=== PATIENT | female | born 1985 | race Hispanic/Latino ===

== ENCOUNTER 2016-11-20 07:41 | Emergency (ER) | payer MEDICAID ==
[2016-11-20 08:25] VITALS: BMI 20.3
[2016-11-20 08:28] VITALS: TEMP 99; O2SAT 100
--- NOTE | 2016-11-20 08:42 | ED PDOC ---
Arrival/HPI - General Chief Complaint: Female Genitourinary Time Seen by Provider: 11/20/16 08:35 Historian: Patient - History of Present Illness Narrative History of Present Illness (Text): 11/20/16 08:35 A 31 year old female presents to the emergency department complaining of urinary frequency, urinary urgency and dysuria. Patient denies any abdominal pain, back pain, fever, vaginal discharge, vaginal bleeding or other complaints at this time. Patient states her last menstrual cycle was last month. Patient mentions she is currently sexually active with one partner and she does not use protection because she is trying to get . Time/Duration: 1-3 hours Symptom Onset: Sudden Symptom Course: Unchanged Quality: Burning Activities at Onset: Rest Context: Home Associated Symptoms (Text): 11/20/16 09:08 Since this morning the patient developed urinary urgency frequency and dysuria. No fever or chills. No vaginal discharge or bleeding. LMP was one month ago. No low back pain. No abdominal pain nausea vomiting. Past Medical History - Provider Review Nursing Documentation Reviewed: Yes - Psychiatric Hx Substance Use: No Family/Social History - Physician Review Nursing Documentation Reviewed: Yes Family/Social History: Unknown Family HX Smoking Status: Current Some Days Smoker Hx Alcohol Use: No Hx Substance Use: No Allergies/Home Meds Allergies/Adverse Reactions: Allergies No Known Allergies Allergy (Verified 11/20/16 08:25) Review of Systems - Physician Review All systems were reviewed & negative as marked: Yes - Review of Systems Constitutional: absent: Fevers Gastrointestinal: absent: Abdominal Pain Genitourinary Female: Dysuria, Frequency, Other (urinary urgency). absent: Vaginal Bleeding, Vaginal Discharge Musculoskeletal: absent: Back Pain Physical Exam Vital Signs Reviewed: Yes Vital Signs Temp Pulse Resp BP Pulse Ox 11/20/16 08:27 99.0 F 80 16 105/75 100 Temperature: Afebrile Blood Pressure: Normal Pulse: Regular Respiratory Rate: Normal Appearance: Positive for: Well-Appearing, Non-Toxic, Comfortable Pain Distress: None Mental Status: Positive for: Alert and Oriented X 3 - Systems Exam Head: Present: Atraumatic, Normocephalic Pupils: Present: PERRL Extroacular Muscles: Present: EOMI Conjunctiva: Present: Normal Mouth: Present: Moist Mucous Membranes Neck: Present: Normal Range of Motion Respiratory/Chest: Present: Clear to Auscultation, Good Air Exchange. No: Respiratory Distress, Accessory Muscle Use Cardiovascular: Present: Regular Rate and Rhythm, Normal S1, S2. No: Murmurs Abdomen: Present: Normal Bowel Sounds. No: Tenderness, Distention, Peritoneal Signs, Rebound, Guarding Back: Present: Normal Inspection Upper Extremity: Present: Normal Inspection. No: Cyanosis, Edema Lower Extremity: Present: Normal Inspection. No: Edema Neurological: Present: GCS=15, CN II-XII Intact, Speech Normal Skin: Present: Warm, Dry, Normal Color. No: Rashes Psychiatric: Present: Alert, Oriented x 3, Normal Insight, Normal Concentration Medical Decision Making ED Course and Treatment: 11/20/16 08:35 Impression: A 31 year old female with urinary urgency, frequency and dysuria. Differential Diagnosis include but are not limited to: UTI Plan: -- Urinalysis -- Reassess and disposition Progress Notes: 11/20/16 09:16 Urine dip is consistent with UTI, and patient will be treated. - Lab Interpretations Lab Results: Lab Results 11/20/16 08:30: Urine Color Yellow, Urine Appearance Clear, Urine pH 6.5, Ur Specific [place] <= 1.005, Urine Protein Negative, Urine Glucose (UA) Negative, Urine Ketones Negative, Urine Blood Trace-intact H, Urine Nitrate Negative, Urine Bilirubin Negative, Urine Urobilinogen 0.2, Ur Leukocyte Esterase Large H , Urine RBC Pending, Urine WBC Pending, Urine HCG, Qual Pending I have reviewed the lab results: Yes - Scribe Statement The provider has reviewed the documentation as recorded by the Dimple Alcantara Provider Scribe Attestation: All medical record entries made by the Dimple were at my direction and personally dictated by me. I have reviewed the chart and agree that the record accurately reflects my personal performance of the history, physical exam, medical decision making, and the department course for this patient. I have also personally directed, reviewed, and agree with the discharge instructions and disposition. Disposition/Present on Arrival - Present on Arrival Any Indicators Present on Arrival: No History of DVT/PE: No History of Uncontrolled Diabetes: No Urinary Catheter: No History of Decub. Ulcer: No History Surgical Site Infection Following: None - Disposition Have Diagnosis and Disposition been Completed?: Yes Diagnosis: Urinary tract infection Disposition: HOME/ ROUTINE Disposition Time: :17 Patient Plan: Discharge Condition: GOOD Discharge Instructions (ExitCare): Urinary Tract Infection in Women (ED) Prescriptions: Sulfamethoxazole/Trimethoprim [Bactrim DS 800 mg-160 mg] 1 tab PO BID #6 tab Phenazopyridine HCl [Pyridium] 200 mg PO Q8 #9 tablet Referrals: Cristiana Renee, [Primary Care Provider] - Follow up with primary
[2016-11-20 09:13] LABS: PH,URINE 6.5 (4.7-8.0); URINE APPEARANCE CLEAR (CLEAR); URINE BILIRUBIN NEGATIVE (NEGATIVE); URINE BLOOD TRACE-INTACT (NEGATIVE); URINE COLOR YELLOW (YELLOW); URINE GLUCOSE (UA) NEGATIVE (NEGATIVE); URINE KETONE NEGATIVE (NEGATIVE); URINE LEUKOCYTE ESTERASE LARGE Leu/uL (NEGATIVE); URINE PROTEIN NEGATIVE mg/dL (<30 mg/dL); URINE UROBILINOGEN 0.2 E.U./dL (<1 E.U./dL)
[2016-11-20 09:30] LABS: URINE BACTERIA SMALL (NEG); URINE RBC 0 - 2 /hpf (0-2); URINE WBC TNTC /hpf (0-6)
[2016-11-20 09:43] VITALS: BP 108/76; PULSE 79; RESP 17
== END 2016-11-20 09:43 | disposition home or self-care (01) ==
LOC: ED 07:41
DX: N39.0 Urinary tract infection, site not specified (principal)

== ENCOUNTER 2017-03-05 19:40 | Emergency (ER) | payer MEDICAID ==
[2017-03-05 20:12] VITALS: BMI 20.3
--- NOTE | 2017-03-05 20:24 | ED PDOC ---
Arrival/HPI - General Historian: Patient <Oh Peñaloza - Last Filed: 03/05/17 21:35> <Geronimo Strickland - Last Filed: 03/05/17 21:46> - General Chief Complaint: Female Genitourinary Time Seen by Provider: 03/05/17 19:45 - History of Present Illness Narrative History of Present Illness (Text): 03/05/17 20:19 This is a 31 year old female with no Past medical history who comes in complaining of burning with urination. Patient states that this first started 1 week ago. There is associated urinary frequency but patient denies flank pain or suprapubic tenderness. Patient denies other acute complaints. Patient also complaining of white discharge after her period. LMP was 02/19/17. Patient states that her partner was diagnosed with epididymitis and received antibiotic treatment for it about 3 weeks ago. The partner did not notice efficacy with ceftriaxone or azithromycin but noticed improvement when started on doxycycline. (Oh Peñaloza) Past Medical History - Provider Review Nursing Documentation Reviewed: Yes - Infectious Disease Hx of Infectious Diseases: None - Psychiatric Hx Substance Use: No - Anesthesia Hx Anesthesia: No <JhTylerneil Herrera - Last Filed: 03/05/17 21:35> Family/Social History - Physician Review Nursing Documentation Reviewed: Yes Family/Social History: No Known Family HX Smoking Status: Never Smoked Hx Alcohol Use: No Hx Substance Use: No <JhTylerneil Herrera - Last Filed: 03/05/17 21:35> Allergies/Home Meds <Oh Peñaloza - Last Filed: 03/05/17 21:35> <Geronimo Strickland - Last Filed: 03/05/17 21:46> Allergies/Adverse Reactions: Allergies No Known Allergies Allergy (Verified 11/20/16 08:25) Review of Systems - Review of Systems Constitutional: Normal Eyes: Normal ENT: Normal Respiratory: Normal Cardiovascular: Normal Gastrointestinal: Normal Genitourinary Female: Dysuria, Frequency, Vaginal Discharge (white). absent: Hematuria, Vaginal Bleeding Musculoskeletal: Normal Skin: Normal Neurological: Normal Endocrine: Normal Hemo/Lymphatic: Normal Psychiatric: Normal <JhTylerneil Herrera - Last Filed: 03/05/17 21:35> Physical Exam Vital Signs Reviewed: Yes Temperature: Afebrile Blood Pressure: Normal Pulse: Regular Respiratory Rate: Normal Appearance: Positive for: Well-Appearing, Comfortable Mental Status: Positive for: Alert and Oriented X 3 - Systems Exam Head: Present: Atraumatic, Normocephalic Pupils: Present: PERRL Extroacular Muscles: Present: EOMI Conjunctiva: Present: Normal Mouth: Present: Moist Mucous Membranes Neck: Present: Normal Range of Motion Respiratory/Chest: Present: Clear to Auscultation, Good Air Exchange. No: Accessory Muscle Use Cardiovascular: Present: Regular Rate and Rhythm, Normal S1, S2 Abdomen: Present: Normal Bowel Sounds. No: Tenderness, Distention Genitourinary/Pelvic Exam: Present: Normal External Genitalia, Vaginal Discharge (white). No: Vaginal Bleeding, Cervical Motion Tendernes Back: No: CVA Tenderness Upper Extremity: Present: Normal Inspection, Normal ROM. No: Edema Lower Extremity: Present: Normal Inspection, NORMAL PULSES. No: Edema, CALF TENDERNESS Neurological: Present: GCS=15, CN II-XII Intact Skin: Present: Warm, Dry, Normal Color. No: Rashes Psychiatric: Present: Alert, Oriented x 3 <Oh Peñaloza - Last Filed: 03/05/17 21:35> - Systems Exam Genitourinary/Pelvic Exam: Present: Normal External Genitalia, Vaginal Discharge , Cervical os Closed, Other (chaperoned by AJAY Moralez). No: Vaginal Lesions, Adenexal Tenderness, Adenexal Mass, Odor <Geronimo Strickland - Last Filed: 03/05/17 21:46> Vital Signs Temp Pulse Resp BP Pulse Ox 03/05/17 20:30 98.3 F 70 14 118/81 96 Medical Decision Making <Oh Peñaloza - Last Filed: 03/05/17 21:35> <Geronimo Strickland - Last Filed: 03/05/17 21:46> ED Course and Treatment: 03/05/17 21:15 Urinalysis, Urine cultures Rapid HIV test Azithromycin 1000 mg PO Ceftriaxone 250 mg IM Will discharge on Macrobid 100 mg PO BID for 7 days and Flagyl 500 mg PO BID for 7 days. Will also discharge with referral to Dr. Tyler Process Lead. (Oh Peñaloza) A 31 year old female with dysuria and urinary frequency. In agreement with resident note, which includes further HPI details. Patient was seen and evaluated with resident, came up with plan and treatment together. 03/05/17 21:44 Patient with dysuria; urine is negative; will treat for GC/chlamydia, BV, trichomonas, and UTI. (Geronimo Strickland) - Lab Interpretations Lab Results: Lab Results 03/05/17 20:27: Urine Color Yellow, Urine Appearance Clear, Urine pH 7.0, Ur Specific [place] 1.020, Urine Protein Negative, Urine Glucose (UA) Negative, Urine Ketones Negative, Urine Blood Negative, Urine Nitrate Negative, Urine Bilirubin Negative, Urine Urobilinogen 1.0 H, Ur Leukocyte Esterase Negative - Medication Orders Current Medication Orders: Discontinued Medications Azithromycin (Zithromax) 1,000 mg PO STAT STA PRN Reason: Protocol Stop: 03/05/17 21:13 Last Admin: 03/05/17 21:38 Dose: 1,000 mg Ceftriaxone Sodium (Rocephin) 250 mg IM STAT STA PRN Reason: Protocol Stop: 03/05/17 21:12 Last Admin: 03/05/17 21:38 Dose: 250 mg Lidocaine HCl (Lidocaine 1% (20ml)) Confirm Administered Dose 20 ml .ROUTE .[facility] Stop: 03/05/17 21:25 - PA / PULP OPERATOR / Resident Statement / has reviewed & agrees with the documentation as recorded. YARY has examined the patient and agrees with the treatment plan. <Geronimo Strickland - Last Filed: 03/05/17 21:46> Disposition/Present on Arrival - Present on Arrival Any Indicators Present on Arrival: No History of DVT/PE: No History of Uncontrolled Diabetes: No Urinary Catheter: No History of Decub. Ulcer: No History Surgical Site Infection Following: None - Disposition Have Diagnosis and Disposition been Completed?: Yes Disposition Time: 21:30 <Oh Peñaloza - Last Filed: 03/05/17 21:35> <Geronimo Strickland - Last Filed: 03/05/17 21:46> - Disposition Diagnosis: Urinary tract infection Disposition: HOME/ ROUTINE Patient Problems: Current Active Problems Problem Status Onset Urinary tract infection Acute Condition: STABLE Additional Instructions: Please take Macrobid 100 mg by mouth twice a day for 7 days. Please take Flagyl 500 mg by mouth twice a day for 7 days. Please follow up with Dr. Jayson the Process Lead physician. For your partner, make sure he sees a urologist for evaluation. If your HIV test comes back abnormal, you will receive a phone call. If the test was normal, you may not receive a call, but you may always call the ER ([phone]) to find out more information. Return to the emergency department if any new concerning symptoms. Prescriptions: metroNIDAZOLE [Flagyl] 500 mg PO BID 7 Days Nitrofurantoin Macrocrystals [Macrobid] 100 mg PO BID 7 Days Referrals: Josias Tyler DO [Staff Provider] - Follow up with primary Shay Mcgee MD [Staff Provider] - Follow up with primary Forms: [employer] ([place])
[2017-03-05 20:41] LABS: URINE BILIRUBIN NEGATIVE (NEGATIVE); URINE BLOOD NEGATIVE (NEGATIVE); URINE GLUCOSE (UA) NEGATIVE (NEGATIVE); URINE KETONE NEGATIVE (NEGATIVE); URINE LEUKOCYTE ESTERASE NEGATIVE Leu/uL (NEGATIVE); URINE PROTEIN NEGATIVE mg/dL (<30 mg/dL)
[2017-03-05 20:42] LABS: URINE APPEARANCE CLEAR (CLEAR); URINE COLOR YELLOW (YELLOW)
[2017-03-05 20:44] VITALS: TEMP 98.3; O2SAT 96
[2017-03-05] MEDS ORDERED: cefTRIAXone (Rocephin) 250 mg Inj IM STA (21:11)
[2017-03-05] MEDS ORDERED: Lidocaine 1% Inj (20ml) ONE (21:24)
[2017-03-06 01:52] VITALS: BP 116/81; PULSE 76; RESP 16
== END 2017-03-05 21:46 | disposition home or self-care (01) ==
LOC: ED 19:40
DX: N39.0 Urinary tract infection, site not specified (principal)
CPT/HCPCS: 81003; 87086; 87390; 87491; 87591; 96372; 99284; J0696

== ENCOUNTER 2017-11-08 19:41 | Emergency (ER) | payer MEDICAID ==
--- NOTE | 2017-11-08 20:09 | ED PDOC ---
Arrival/HPI - General Time Seen by Provider: 11/08/17 20:08 Historian: Patient - History of Present Illness Narrative History of Present Illness (Text): 11/08/17 20:09 32 y/o female, no significant pmh, nkda, c/o itching rash on the both inner thigh x 2 weeks and burning urinary sensation x 3 days. Itching, no change in soap/clothing/detergent, no fever or chills. Pt. stated that she has UTI like symptoms with the burning urinary sensation about 3 days ago, no flank or pelvic pain, no abdominal pain, no night sweat, no rash, no numbness or tingling , no other medical or psychological complaints. Past Medical History - Provider Review Nursing Documentation Reviewed: Yes - Infectious Disease Hx of Infectious Diseases: None - Psychiatric Hx Substance Use: No - Anesthesia Hx Anesthesia: No Family/Social History - Physician Review Nursing Documentation Reviewed: Yes Family/Social History: Unknown Family HX Smoking Status: Never Smoked Hx Alcohol Use: No Hx Substance Use: No Allergies/Home Meds Allergies/Adverse Reactions: Allergies No Known Allergies Allergy (Verified 11/20/16 08:25) Review of Systems - Review of Systems Constitutional: absent: Fatigue, Fevers Eyes: absent: Vision Changes ENT: absent: Hearing Changes, Rhinorrhea Respiratory: absent: SOB, Cough Cardiovascular: absent: Chest Pain Gastrointestinal: absent: Abdominal Pain, Nausea, Vomiting Genitourinary Female: Dysuria Musculoskeletal: absent: Arthralgias, Back Pain Skin: Rash, Pruritis, Skin Lesions. absent: Laceration, Abscess, Ulcer, Cellulitis Psychiatric: absent: Anxiety, Depression Physical Exam Vital Signs Reviewed: Yes Vital Signs Temp Pulse Resp BP Pulse Ox 11/08/17 20:26 98 F 75 16 129/75 100 Temperature: Afebrile Blood Pressure: Normal Pulse: Regular Respiratory Rate: Normal Appearance: Positive for: Well-Appearing, Non-Toxic, Comfortable Pain Distress: Mild Mental Status: Positive for: Alert and Oriented X 3 - Systems Exam Head: Present: Atraumatic, Normocephalic Pupils: Present: PERRL Extroacular Muscles: Present: EOMI Conjunctiva: Present: Normal Mouth: Present: Moist Mucous Membranes Neck: Present: Normal Range of Motion Respiratory/Chest: Present: Clear to Auscultation, Good Air Exchange. No: Respiratory Distress, Accessory Muscle Use Cardiovascular: Present: Regular Rate and Rhythm, Normal S1, S2. No: Murmurs Abdomen: No: Tenderness, Distention, Peritoneal Signs, Rebound, Guarding Back: Present: Normal Inspection. No: CVA Tenderness Upper Extremity: Present: Normal Inspection. No: Cyanosis, Edema Lower Extremity: Present: Normal Inspection. No: Edema Neurological: Present: GCS=15, CN II-XII Intact, Speech Normal, Motor Func Grossly Intact, Gait Normal, Memory Normal Skin: Present: Warm, Dry, Rashes (+maculepapule rash noted on the bilateral inner thigh region with no cellulitis or streaking, no ulcers. ), Normal Color Psychiatric: Present: Alert, Oriented x 3, Normal Insight, Normal Concentration Medical Decision Making ED Course and Treatment: 11/08/17 20:38 -UA/poc 11/08/17 21:49 -Urine hcg is negative. -Macrobid and pyridium ordered -UA show +UTI. -Discharge home with macrobid, pyridium, lotrisone, keep the skin cool and dry, stay hydrated, follow up with your own pmd and accessioner within 2 days, return to the ER for any new or worsening signs or symptoms. - Lab Interpretations Lab Results: Lab Results 11/08/17 20:29: Urine Color Yellow, Urine Appearance Cloudy, Urine pH 7.0, Ur Specific [place] 1.015, Urine Protein Negative, Urine Glucose (UA) Negative, Urine Ketones Trace H, Urine Blood Small H, Urine Nitrate Positive H, Urine Bilirubin Negative, Urine Urobilinogen 0.2, Ur Leukocyte Esterase Large H, Urine RBC Pending, Urine WBC Pending I have reviewed the lab results: Yes - PA / ROPE CUTTER / Resident Statement MD/DO has reviewed & agrees with the documentation as recorded. Disposition/Present on Arrival - Present on Arrival Any Indicators Present on Arrival: No History of DVT/PE: No History of Uncontrolled Diabetes: No Urinary Catheter: No History of Decub. Ulcer: No History Surgical Site Infection Following: None - Disposition Have Diagnosis and Disposition been Completed?: Yes Diagnosis: Dermatitis, UTI (urinary tract infection) Disposition: HOME/ ROUTINE Disposition Time: 20:40 Patient Plan: Discharge Patient Problems: Current Active Problems Problem Status Onset Dermatitis Acute UTI (urinary tract infection) Acute Condition: GOOD Additional Instructions: -Discharge home with macrobid, pyridium, lotrisone, keep the skin cool and dry, stay hydrated, follow up with your own pmd and accessioner within 2 days, return to the ER for any new or worsening signs or symptoms. Prescriptions: Clotrimazole/Betamethasone [Lotrisone] 1 appful EXT BID #30 g Nitrofurantoin Macrocrystals [Macrobid] 100 mg PO BID #14 cap Phenazopyridine [Pyridium] 200 mg PO TID #6 tab Referrals: Deisi Rafdord MD [Staff Provider] - Follow up with primary Shay Mcgee MD [Staff Provider] - Follow up with primary Forms: WORK NOTE
[2017-11-08 20:22] VITALS: BMI 21.2
[2017-11-08 20:33] VITALS: O2SAT 100
[2017-11-08 21:43] LABS: URINE BILIRUBIN NEGATIVE (NEGATIVE); URINE BLOOD SMALL (NEGATIVE); URINE GLUCOSE (UA) NEGATIVE (NEGATIVE); URINE LEUKOCYTE ESTERASE LARGE Leu/uL (NEGATIVE); URINE PROTEIN NEGATIVE mg/dL (<30 mg/dL); URINE UROBILINOGEN 0.2 E.U./dL (<1 E.U./dL)
[2017-11-08 21:44] LABS: URINE APPEARANCE CLOUDY (CLEAR); URINE COLOR YELLOW (YELLOW)
[2017-11-08 22:14] LABS: URINE BACTERIA MANY (NEG); URINE WBC 25 - 30 /hpf (0-6)
[2017-11-08 22:39] VITALS: BP 120/82; PULSE 78; RESP 17; TEMP 98.2
== END 2017-11-08 21:48 | disposition home or self-care (01) ==
LOC: ED 19:41
DX: L30.9 Dermatitis, unspecified (principal); N39.0 Urinary tract infection, site not specified